=== PATIENT | female | born 1990 | race Two or more races ===

== ENCOUNTER 2022-04-25 11:39 | Observation (INO) | payer OTHER ==
[~2022-04-25] VITALS: Ht 162.6 cm; Wt 97.5 kg
[2022-04-25 13:22] LABS: Basophils # (auto) 0 10 ^3/uL (0-0.2); Basophils % (auto) 0.4 % (0.0-2.0); Eosinophils # (auto) 0 10 ^3/uL (0-0.8); Eosinophils % (auto) 0.5 % (0.0-7.0); Hematocrit 34.7 % (36.0-46.0); Hemoglobin 11.8 g/dL (12.2-16.2); Lymphocytes # (auto) 1.7 10 ^3/uL (0.4-5.4); Lymphocytes % (auto) 20.7 % (10.0-50.0); Mean Corpuscular Hemoglobin 28.3 pg (28.0-32.0); Mean Corpuscular Volume 83.2 fL (80.0-100.0); Monocytes # (auto) 0.4 10 ^3/uL (0-1.3); Monocytes % (auto) 4.9 % (0.0-12.0); Neutrophils # (auto) 6.1 10 ^3/uL (1.6-8.6); Neutrophils % (auto) 73.5 % (37.0-80.0); Red Blood Cells 4.17 10^6/uL (4.0-5.20); Red Cell Distribution Width 13.8 % (11.8-14.3); White Blood Cell 8.3 10^3/uL (4.4-10.8)
[2022-04-25 13:40] LABS: Albumin 2.8 g/dL (3.4-5.0); Calcium 8.9 mg/dL (8.5-10.1)
[2022-04-25 13:43] LABS: BUN/Creatinine Ratio 9.7
[2022-04-25 13:47] LABS: INR 1.02 (0.9-1.15); Partial Thromboplastin Time 28.6 sec (23.6-33.0)
[2022-04-25 13:54] LABS: Bilirubin, Total 0.4 mg/dL (0.2-1.0); Total Protein 7.3 g/dL (6.4-8.2)
[2022-04-25] MEDS: TERBUTALINE SULFATE 1 MG/ML 1ML VIAL SC SCH ×2 (14:40→15:27)
[2022-04-25] MEDS ORDERED: PREN1TAB71 OR (14:56)
[2022-04-26 07:07] LABS: RPR Non Reactive (Non Reactive)
== END 2022-04-25 16:11 | disposition home or self-care (01) ==
LOC: LDRP 11:39 → UNDODISOB 16:11
PROVIDERS: ADMIT Obstetrics & Gynecology; ATTEND Obstetrics & Gynecology
DX: O60.03 Preterm labor without delivery, third trimester (principal); O99.891 Other specified diseases and conditions complicating pregnancy; M54.9 Dorsalgia, unspecified; R10.9 Unspecified abdominal pain; Z3A.29 29 weeks gestation of pregnancy; Z79.899 Other long term (current) drug therapy
CPT/HCPCS: 36415; 59025; 76805; 80053; 81002; 82948; 85025; 85610; 85730; 86592; 86762; 86850; 86900; 86901; 87340; 96372; G0378; J3105

== ENCOUNTER 2022-05-16 13:30 | Observation (INO) | payer MEDICAID | END 2022-05-16 15:22 | disposition home or self-care (01) | LOC: LDRP 13:30 → UNDOADMOB 13:30 → LDRP 14:32 | PROVIDERS: ADMIT Obstetrics & Gynecology; ATTEND Obstetrics & Gynecology | DX: O26.893 Other specified pregnancy related conditions, third trimester (principal); R10.9 Unspecified abdominal pain; Z3A.32 32 weeks gestation of pregnancy | CPT/HCPCS: 59025; 81002; 94760; G0378 ==

== ENCOUNTER → 2022-05-16 | Outpatient (CLI) | payer MEDICAID ==
[~2022-05-16] MED LIST: PREN1TAB71 OR
[2022-05-16 10:56] LABS: Basophils # (auto) 0 10 ^3/uL (0-0.2); Basophils % (auto) 0.6 % (0.0-2.0); Eosinophils # (auto) 0 10 ^3/uL (0-0.8); Eosinophils % (auto) 0.7 % (0.0-7.0); Hemoglobin 11.4 g/dL (12.2-16.2); Lymphocytes # (auto) 1.7 10 ^3/uL (0.4-5.4); Mean Corpuscular Hemoglobin 27.2 pg (28.0-32.0); Mean Corpuscular Hgb Conc. 33.6 g/dL (32.0-36.0); Mean Corpuscular Volume 80.9 fL (80.0-100.0); Monocytes # (auto) 0.3 10 ^3/uL (0-1.3); Monocytes % (auto) 4.9 % (0.0-12.0); Neutrophils # (auto) 4.8 10 ^3/uL (1.6-8.6); Neutrophils % (auto) 69.8 % (37.0-80.0); Nucleated Red Blood Cells % 0.1 %; Red Blood Cells 4.21 10^6/uL (4.0-5.20); Red Cell Distribution Width 13.8 % (11.8-14.3); White Blood Cell 6.9 10^3/uL (4.4-10.8)
[2022-05-16 11:26] LABS: Amphetamine Screen, Urine NEGATIVE (NEGATIVE); Barbiturate Scree,Urine NEGATIVE (NEGATIVE); Benzodiazephine Screen, Urine NEGATIVE (NEGATIVE); Cannabinoid Screen, Urine NEGATIVE (NEGATIVE); Cocaine Screen, Urine NEGATIVE (NEGATIVE); Opiate Scree,Urine NEGATIVE (NEGATIVE); Phencyclidine Screen, Urine NEGATIVE (NEGATIVE)
[2022-05-17 06:25] LABS: RPR Non Reactive (Non Reactive)
== END | disposition home or self-care (01) ==
LOC: LAB 10:09
PROVIDERS: ATTEND Obstetrics & Gynecology
DX: Z34.80 Encounter for supervision of other normal pregnancy, unspecified trimester (principal); Z31.430 Encounter of female for testing for genetic disease carrier status for procreative management; Z36.0 Encounter for antenatal screening for chromosomal anomalies; N39.0 Urinary tract infection, site not specified
CPT/HCPCS: 36415; 80307; 83021; 83036; 84112; 84144; 84702; 85025; 85660; 86592; 86703; 86762; 86850; 86900; 86901; 87086; 87340

== ENCOUNTER → 2022-05-23 | Outpatient (CLI) | payer MEDICAID | END | disposition home or self-care (01) | LOC: LAB 09:35 | PROVIDERS: ATTEND Obstetrics & Gynecology Obstetrics | DX: Z34.80 Encounter for supervision of other normal pregnancy, unspecified trimester (principal) | CPT/HCPCS: 36415; 82951 ==

== ENCOUNTER 2022-06-05 13:50 | Observation (INO) | payer MEDICAID ==
[~2022-06-05] VITALS: Ht 162.6 cm; Wt 98.0 kg
== END 2022-06-05 15:30 | disposition home or self-care (01) ==
LOC: LDRP 13:50 → UNDOADMOB 13:50 → LDRP 14:08 → UNDODISOB 15:30
PROVIDERS: ADMIT Obstetrics & Gynecology; ATTEND Obstetrics & Gynecology
DX: O24.419 Gestational diabetes mellitus in pregnancy, unspecified control (principal); Z3A.35 35 weeks gestation of pregnancy
CPT/HCPCS: 59025; 76818; 81002; 82948; 82962; 94760; G0378

== ENCOUNTER → 2022-06-05 | Outpatient (CLI) | payer MEDICAID ==
[2022-06-05 11:01] LABS: Basophils # (auto) 0 10 ^3/uL (0-0.2); Basophils % (auto) 0.4 % (0.0-2.0); Eosinophils # (auto) 0 10 ^3/uL (0-0.8); Eosinophils % (auto) 0.7 % (0.0-7.0); Hemoglobin 10.9 g/dL (12.2-16.2); Lymphocytes # (auto) 1.7 10 ^3/uL (0.4-5.4); Mean Corpuscular Hemoglobin 25.6 pg (28.0-32.0); Monocytes # (auto) 0.4 10 ^3/uL (0-1.3); Neutrophils # (auto) 4.1 10 ^3/uL (1.6-8.6); Red Blood Cells 4.25 10^6/uL (4.0-5.20); White Blood Cell 6.3 10^3/uL (4.4-10.8)
[2022-06-05 11:03] LABS: Hematocrit 33.7 % (36.0-46.0); Lymphocytes % (auto) 27.2 % (10.0-50.0); Mean Corpuscular Hgb Conc. 32.2 g/dL (32.0-36.0); Mean Corpuscular Volume 79.4 fL (80.0-100.0); Monocytes % (auto) 6.9 % (0.0-12.0); Neutrophils % (auto) 64.8 % (37.0-80.0); Red Cell Distribution Width 13.6 % (11.8-14.3)
[2022-06-06 08:07] LABS: RPR Non Reactive (Non Reactive)
== END | disposition home or self-care (01) ==
LOC: LAB 10:32
PROVIDERS: ATTEND Obstetrics & Gynecology Obstetrics
DX: Z34.80 Encounter for supervision of other normal pregnancy, unspecified trimester (principal); O99.810 Abnormal glucose complicating pregnancy
CPT/HCPCS: 36415; 82951; 85025; 86592

== ENCOUNTER 2022-06-11 09:20 | Observation (INO) | payer MEDICAID | END 2022-06-11 11:10 | disposition home or self-care (01) | LOC: LDRP 09:20 → UNDOADMOB 09:20 → LDRP 09:49 → UNDODISOB 11:10 | PROVIDERS: ADMIT Obstetrics & Gynecology Obstetrics; ATTEND Obstetrics & Gynecology Obstetrics | DX: O24.419 Gestational diabetes mellitus in pregnancy, unspecified control (principal); Z3A.36 36 weeks gestation of pregnancy | CPT/HCPCS: 59025; 76818; 81002; 82962; G0378 ==

== ENCOUNTER 2022-06-15 03:34 | Observation (INO) | payer MEDICAID ==
[~2022-06-15] VITALS: Ht 162.6 cm; Wt 98.0 kg
== END 2022-06-15 05:00 | disposition home or self-care (01) ==
LOC: LDRP 03:34
PROVIDERS: ADMIT Obstetrics & Gynecology; ATTEND Obstetrics & Gynecology
DX: O62.9 Abnormality of forces of labor, unspecified (principal); Z3A.37 37 weeks gestation of pregnancy
CPT/HCPCS: 59025; 81002

== ENCOUNTER 2022-06-15 15:27 | Observation (INO) | payer MEDICAID ==
[~2022-06-15] VITALS: Ht 30.5 cm; Wt 0.5 kg
[2022-06-15] MEDS ORDERED: ACETAMINOPHEN 325 MG TAB PO ONE (19:15)
[2022-06-15] MEDS ORDERED: SODIUM CHLORIDE 0.9% 1,000 ML IV ONE (19:15)
[2022-06-15] MEDS ORDERED: ONDANSETRON HCL 4 MG/2 ML VIAL IV PRN (20:00)
[2022-06-15 21:09] LABS: Basophils # (auto) 0 10 ^3/uL (0-0.2); Basophils % (auto) 0.6 % (0.0-2.0); Eosinophils # (auto) 0 10 ^3/uL (0-0.8); Hematocrit 28.3 % (36.0-46.0); Lymphocytes # (auto) 0.4 10 ^3/uL (0.4-5.4); Lymphocytes % (auto) 5.4 % (10.0-50.0); Mean Corpuscular Hemoglobin 24.9 pg (28.0-32.0); Mean Corpuscular Hgb Conc. 31.9 g/dL (32.0-36.0); Mean Corpuscular Volume 78.1 fL (80.0-100.0); Monocytes # (auto) 0.8 10 ^3/uL (0-1.3); Monocytes % (auto) 11.4 % (0.0-12.0); Neutrophils # (auto) 5.7 10 ^3/uL (1.6-8.6); Neutrophils % (auto) 82.6 % (37.0-80.0); Nucleated Red Blood Cells % 0.1 %; Red Blood Cells 3.63 10^6/uL (4.0-5.20); Red Cell Distribution Width 14.5 % (11.8-14.3); White Blood Cell 6.9 10^3/uL (4.4-10.8)
[2022-06-15 22:47] LABS: Amphetamine Screen, Urine NEGATIVE (NEGATIVE); Barbiturate Scree,Urine NEGATIVE (NEGATIVE); Benzodiazephine Screen, Urine NEGATIVE (NEGATIVE); Cannabinoid Screen, Urine NEGATIVE (NEGATIVE); Cocaine Screen, Urine NEGATIVE (NEGATIVE); Opiate Scree,Urine NEGATIVE (NEGATIVE); Phencyclidine Screen, Urine NEGATIVE (NEGATIVE)
[2022-06-17 06:06] LABS: RPR Non Reactive (Non Reactive)
== END 2022-06-15 23:50 | disposition home or self-care (01) ==
LOC: UNDOADMOB 15:27 → LDRP 15:27
PROVIDERS: ADMIT Obstetrics & Gynecology; ATTEND Obstetrics & Gynecology
DX: O98.513 Other viral diseases complicating pregnancy, third trimester (principal); U07.1 COVID-19; O62.9 Abnormality of forces of labor, unspecified; O36.8130 Decreased fetal movements, third trimester, not applicable or unspecified; O26.893 Other specified pregnancy related conditions, third trimester; R51.9 Headache, unspecified; R50.9 Fever, unspecified; R09.81 Nasal congestion; Z79.899 Other long term (current) drug therapy; Z3A.37 37 weeks gestation of pregnancy
CPT/HCPCS: 36415; 59025; 76818; 80307; 81002; 83036; 85025; 86592; 87426; 94762; 96361; 96374; G0378; J2405; 96360

== ENCOUNTER 2022-06-29 10:30 | Inpatient (IN) | payer MEDICAID ==
[~2022-06-29] VITALS: Ht 162.6 cm; Wt 98.0 kg
[2022-06-29] MEDS ORDERED: PROMETHAZINE HCL 25 MG/ML 1ML IV PRN (11:00)
[2022-06-29] MEDS ORDERED: DERMOPLAST 60ML BOTTLE TOP PRN (11:00)
[2022-06-29] MEDS ORDERED: miSOPROStol 50 MCG per PRE-CUT 1/2 TAB PO PRN (11:00)
[2022-06-29] MEDS ORDERED: LIDOCAINE 2%HCL (LOCAL ANESTH.) INJ 10ml MDV IJ PRN (11:00)
[2022-06-29] MEDS ORDERED: BUTORPHANOL TARTRATE 2 MG/1 ML VIAL IV PRN ×2 (11:00)
[2022-06-29] MEDS ORDERED: PHISODERM TOP SOLN 240ML BTL TOP PRN (11:00)
[2022-06-29] MEDS ORDERED: WITCH HAZEL-GLYCERIN PAD TOP PRN (11:00)
[2022-06-29 11:40] LABS: Basophils # (auto) 0 10 ^3/uL (0-0.2); Eosinophils # (auto) 0 10 ^3/uL (0-0.8); Hemoglobin 10.2 g/dL (12.2-16.2); Lymphocytes # (auto) 1.6 10 ^3/uL (0.4-5.4); Monocytes # (auto) 0.6 10 ^3/uL (0-1.3); Neutrophils # (auto) 4.7 10 ^3/uL (1.6-8.6); Nucleated Red Blood Cells % 0.1 %; Red Blood Cells 4.14 10^6/uL (4.0-5.20); White Blood Cell 6.9 10^3/uL (4.4-10.8)
[2022-06-29 11:43] LABS: Basophils % (auto) 0.3 % (0.0-2.0); Eosinophils % (auto) 0.1 % (0.0-7.0); Hematocrit 32.1 % (36.0-46.0); Lymphocytes % (auto) 23.2 % (10.0-50.0); Mean Corpuscular Hemoglobin 24.7 pg (28.0-32.0); Mean Corpuscular Hgb Conc. 31.8 g/dL (32.0-36.0); Mean Corpuscular Volume 77.5 fL (80.0-100.0); Monocytes % (auto) 8.7 % (0.0-12.0); Neutrophils % (auto) 67.7 % (37.0-80.0); Red Cell Distribution Width 14.9 % (11.8-14.3)
[2022-06-29 11:49] LABS: Urine Bacteria FEW /hpf (None Seen); Urine Blood Negative /uL (Negative); Urine Mucus FEW (None Seen); Urine Specific Gravity 1.022 (1.001-1.035); Urine WBC 22 /hpf (0 - 5)
[2022-06-29 12:00] LABS: Albumin 2.5 g/dL (3.4-5.0); Calcium 8.7 mg/dL (8.5-10.1); Potassium 4.1 mmol/L (3.5-5.1)
[2022-06-29 12:02] LABS: Amphetamine Screen, Urine NEGATIVE (NEGATIVE); Barbiturate Scree,Urine NEGATIVE (NEGATIVE); Benzodiazephine Screen, Urine NEGATIVE (NEGATIVE); Cannabinoid Screen, Urine NEGATIVE (NEGATIVE); Cocaine Screen, Urine NEGATIVE (NEGATIVE); Opiate Scree,Urine NEGATIVE (NEGATIVE); Phencyclidine Screen, Urine NEGATIVE (NEGATIVE)
[2022-06-29 12:03] LABS: BUN/Creatinine Ratio 8.8; Bilirubin, Total 0.6 mg/dL (0.2-1.0); Total Protein 6.8 g/dL (6.4-8.2)
[2022-06-29 12:08] LABS: INR 0.94 (0.9-1.15); Partial Thromboplastin Time 27.4 sec (24.6-33.4)
[2022-06-29] MEDS: LACTATED RINGER'S 1,000 ML IV SCH ×3 (14:47→17:48)
[2022-06-29] MEDS ORDERED: ROPIVACAINE HCL 200 ML EPI SCH (16:30)
[2022-06-29] MEDS ORDERED: ePHEDrine SULFATE 50 MG/ML AMP IV ONE (16:30)
[2022-06-29] MEDS ORDERED: NALOXONE HCL 0.4 MG/ML VIAL IV ONE (16:30)
[2022-06-29] MEDS ORDERED: fentaNYL CITRATE 100 MCG/2 ML VL IV ONE (16:30)
[2022-06-29] MEDS ORDERED: LIDOCAINE HCL 2 %PF INJ 10ML AMP IJ ONE ×2 (16:59→17:00)
[2022-06-29] MEDS ORDERED: OXYTOCIN 20 UNT in SODIUM CHLORIDE 0.9% 1,000 ML IV ONE (18:30)
[2022-06-29] MEDS ORDERED: LACT. RINGERS/OXYTOCIN 20UNITS 500 ML IV ONE ×2 (18:30→19:00)
[2022-06-29] MEDS ORDERED: TERBUTALINE SULFATE 1 MG/ML 1ML VIAL SC PRN (18:30)
[2022-06-29] MEDS ORDERED: NS/OXYTOCIN 20UNITS 1,000 ML IV ONE (22:04)
[2022-06-30] MEDS ORDERED: OXYTOCIN IV ONE (00:31)
[2022-06-30] MEDS ORDERED: NS IV ONE (00:31)
[2022-06-30] MEDS ORDERED: ONDANSETRON ODT 4 MG TAB PO PRN (01:45)
[2022-06-30] MEDS ORDERED: ACETAMINOPHEN 325 MG TAB PO PRN (01:45)
[2022-06-30] MEDS: IBUPROFEN 800 MG TAB PO SCH ×3 (05:19→17:50)
[2022-06-30 06:06] LABS: RPR Non Reactive (Non Reactive)
[2022-06-30 07:00] VITALS: BP 107/58
[2022-06-30 08:06] LABS: Rubella Antibodies, IgG 9.25 index (Immune >0.99)
[2022-06-30] MEDS: WITCH HAZEL-GLYCERIN PAD TOP PRN ×2 (09:01→23:48)
[2022-06-30] MEDS: PHISODERM TOP SOLN 240ML BTL TOP PRN ×2 (09:01→23:48)
[2022-06-30] MEDS: DERMOPLAST 60ML BOTTLE TOP PRN ×2 (09:01→23:48)
[2022-06-30 11:00] VITALS: BP 109/58
[2022-06-30 15:00] VITALS: BP 105/50
[2022-06-30 19:30] VITALS: BP 103/59
[2022-06-30] MEDS ORDERED: DOCUSATE SOD 100 MG CAP PO SCH (22:00)
[2022-06-30 23:00] VITALS: BP 109/51
[2022-07-01] MEDS: IBUPROFEN 800 MG TAB PO SCH ×2 (01:48→11:37)
[2022-07-01 03:00] VITALS: BP 113/55
[2022-07-01] MEDS ORDERED: IBUP800T26 PO (07:02)
[2022-07-01] MEDS ORDERED: DOCU100C10 PO (07:02)
[2022-07-01 07:14] VITALS: BP 122/61
[2022-07-01 11:20] VITALS: BP 119/59
[2022-07-01 15:00] VITALS: BP 117/58
== END 2022-07-01 17:38 | disposition home or self-care (01) | DRG 560 ==
LOC: LDRP 10:30
PROVIDERS: ADMIT Obstetrics & Gynecology; ATTEND Obstetrics & Gynecology
PROC: 10E0XZZ Delivery of Products of Conception, External Approach (ICD-10-PCS; principal; 2022-06-30)
PROC: 3E0R3BZ Introduction of Anesthetic Agent into Spinal Canal, Percutaneous Approach (ICD-10-PCS; 2022-06-30)
PROC: 00HU33Z Insertion of Infusion Device into Spinal Canal, Percutaneous Approach (ICD-10-PCS; 2022-06-30)
DX: O69.81X0 Labor and delivery complicated by cord around neck, without compression, not applicable or unspecified (principal); Z37.0 Single live birth; O36.63X0 Maternal care for excessive fetal growth, third trimester, not applicable or unspecified; Z20.822 Contact with and (suspected) exposure to COVID-19; Z3A.39 39 weeks gestation of pregnancy
CPT/HCPCS: 36415; 59025; 59409; 62282; 80053; 80307; 81001; 81002; 85025; 85610; 85730; 86592; 86762; 86850; 86900; 86901; 87340; 94760; 94762; 96360; 96361; 96365; 96366; G0378; J2001

== ENCOUNTER 2023-01-04 11:34 | Emergency (ER) | payer MEDICAID ==
[~2023-01-04] VITALS: Ht 162.6 cm; Wt 101.4 kg
[~2023-01-04 11:34] MED LIST changes: +DOCU100C10 PO; +IBUP800T26 PO
[2023-01-04] MEDS ORDERED: LIDO2SOL23 PO (13:07)
[2023-01-04] MEDS ORDERED: AZIT500T66 PO (13:07)
[2023-01-04 13:09] VITALS: BP 119/59
== END 2023-01-04 13:22 | disposition home or self-care (01) ==
LOC: ER 11:34
DX: J03.90 Acute tonsillitis, unspecified (principal); Z79.2 Long term (current) use of antibiotics; Z79.1 Long term (current) use of non-steroidal anti-inflammatories (NSAID); Z79.899 Other long term (current) drug therapy

== ENCOUNTER 2024-12-27 13:07 | Emergency (ER) | payer MEDICAID ==
[~2024-12-27] VITALS: Ht 162.6 cm; Wt 108.0 kg
[~2024-12-27 13:07] MED LIST changes: +AZIT500T66 PO; +DOCU-265 PO; -DOCU100C10 PO; +IBUP-1455 PO; -IBUP800T26 PO; +LIDO2SOL26 PO
[2024-12-27 15:04] LABS: Basophils # (auto) 0 10 ^3/uL (0-0.2); Basophils % (auto) 0.5 % (0.0-2.0); Eosinophils # (auto) 0.1 10 ^3/uL (0-0.8); Hematocrit 38.1 % (36.0-46.0); Hemoglobin 12.7 g/dL (12.2-16.2); Lymphocytes # (auto) 1.8 10 ^3/uL (0.4-5.4); Lymphocytes % (auto) 29.1 % (10.0-50.0); Mean Corpuscular Hemoglobin 27.1 pg (28.0-32.0); Mean Corpuscular Hgb Conc. 33.4 g/dL (32.0-36.0); Mean Corpuscular Volume 81.2 fL (80.0-100.0); Monocytes # (auto) 0.4 10 ^3/uL (0-1.3); Monocytes % (auto) 6.3 % (0.0-12.0); Neutrophils # (auto) 3.8 10 ^3/uL (1.6-8.6); Neutrophils % (auto) 62.1 % (37.0-80.0); Platelet Count (auto) 316 10^3/uL (140-450); Red Blood Cells 4.69 10^6/uL (4.0-5.20); Red Cell Distribution Width 15.3 % (11.8-14.3); White Blood Cell 6.2 10^3/uL (4.4-10.8)
[2024-12-27 15:09] LABS: Chloride 105 mmol/L (98-107); Potassium 4.4 mmol/L (3.5-5.1); Sodium 136 mmol/L (136-145)
[2024-12-27 15:10] LABS: Anion Gap 6 (5-15); Carbon Dioxide 25 mmol/L (20-31)
[2024-12-27 15:11] LABS: Calcium 10.2 mg/dL (8.7-10.4)
[2024-12-27 15:15] LABS: BUN/Creatinine Ratio 8.8 (10.0-20.0); Glucose 82 mg/dL (74-106)
[2024-12-27 15:29] LABS: Blood Urea Nitrogen 7 mg/dL (9-23)
[2024-12-27 15:55] LABS: Urine Bacteria FEW /hpf (None Seen); Urine Blood 2+ /uL (Negative); Urine Clarity Turbid (Clear); Urine Color Light-Yellow (Yellow); Urine Mucus FEW (None Seen); Urine Protein, UAD TRACE (Negative); Urine Specific Gravity 1.022 (1.001-1.035); Urine Squamous Epithelial Cell MOD /hpf (<5); Urine Urobilinogen Normal (Negative); Urine WBC 24 /HPF (0-5)
--- NOTE | 2024-12-27 16:20 | ED.PDOC ---
INVESTMENTS MANAGER HPI Comments 34 y.o female presents to the ED for a chief complaint of vaginal bleeding associated with pelvic cramping that presented this morning around 1000. Patient is 6 weeks gestation with desired , has a DIRECTOR WHOLESALE history of with 2 miscarriages and is on prenatals. Patient noticed one episode of bleeding when using the restroom in the toilet and when wiping. At this time, patient has gone to the restroom again and denied any bleeding. Patient denies any blood clots, nausea, vomiting, back pain, fever, chills,hematuria, dysuria or recent falls. Patient was seen by Analyst Sales 3-4 days ago, was told baby had low heart tones and was not given a due date but was advised to go the ED if she experienced any bleeding or cramping. Chief Complaint: Vaginal Bleed Time Seen by MD: 15:40 Reviewed Notes: Nurses Notes, Medications, Allergies Allergies: Coded Allergies: NO KNOWN ALLERGIES (Unverified , 06/29/22) Home Meds Active Scripts Lidocaine HCl (Mouth-Throat) (Lidocaine HCl Viscous) 2 % Kelli, 5 ML PO TID, #100 ML Prov:JENNY SUAZO 01/04/23 Azithromycin (Azithromycin) 500 Mg Tab, 1 TAB PO DAILY, #5 TAB Prov:JENNY SUAZO 01/04/23 Ibuprofen Micronized (Ibuprofen) 800 Mg Tab, 800 MG PO Q6HR PRN, #20 TAB Prov:RADHA SORIANO DO 07/01/22 Docusate Sodium (Docusate Sodium) 100 Mg Cap, 100 MG PO HS PRN, #30 CAP Prov:RADHA SORIANO DO 07/01/22 Reported Medications Vit W/ Ferrous Fumara (PNV PLUS MULTIVI) Plus Tab, 1 OR, TAB 04/25/22 Information Source: Patient Mode of Arrival: Ambulatory Timing: Hours Severity: Mild Vaginal Discharge: None Vaginal Lesions: None Bleeding Quality: Bright Red Vaginal Mass: None Onset Of Mass/Bleeding: Spontaneous Sexual Activity: Last Consensual [place]: Unknown Control: None History of: Current Associated Signs and Symptoms: Vaginal Bleeding, Abdominal Pain, Cramping Past Medical History PAST MEDICAL HISTORY: Denies Surgical History: Denies all surgeries DIRECTOR WHOLESALE History: Denies all DIRECTOR WHOLESALE Hx 6 Para 3 AB 2 Family History Family History: Reviewed,noncontributory to illness Social History Smoker: Non-Smoker Alcohol: Denies ETOH Use Drugs: Denies Drug Use Lives In: Home Constitutional: denies: chills, diaphoresis, fatigue, fever, malaise, sweats, weakness, others EENTM: denies: blurred vision, double vision, ear bleeding, ear discharge, ear drainage, ear pain, ear ringing, eye pain, eye redness, hearing loss, mouth pain, mouth swelling, nasal discharge, nose bleeding, nose congestion, nose pain, photophobia, tearing, throat pain, throat swelling, voice changes, others Respiratory: denies: cough, hemoptysis, orthopnea, SOB at rest, shortness of breath, SOB with excertion, stridor, wheezing, others Cardiovascular: denies: chest pain, dizzy spells, diaphoresis, Dyspnea on exe rtion, edema, irregular heart beat, left arm pain, lightheadedness, palpitations, PND, syncope, others Gastrointestinal: reports: abdominal pain; denies: abdomen distended, blood streaked bowels, constipated, diarrhea, dysphagia, difficulty swallowing, hematemesis, melena, nausea, poor appetite, poor fluid intake, rectal bleeding, rectal pain, vomiting, others Genitourinary: reports: abnormal vagina bleeding, pain, ; denies: burning, dyspareunia, dysuria, flank pain, frequency, hematuria, incontinence, vagina discharge, urgency, others Neurological: denies: dizziness, fainting, headache, left sided numbness, left sided weakness, numbness, paresthesia, pre-existing deficit, right sided numbness, right sided weakness, seizure, speech problems, tingling, tremors, weakness, others Musculoskeletal: denies: back pain, gout, joint pain, joint swelling, muscle pain, muscle stiffness, neck pain, others Integumetry: denies: bruises, change in color, change in hair/nails, dryness, laceration, lesions, lumps, rash, wounds, others Allergic/Immunocompromised: denies: Difficulty Healing, Frequent Infections, Hives, Itching, others Hematologic/Lymphatic: denies: anemia, blood clots, easy bleeding, easy bruising, swollen glands, others Endocrine: denies: excessive hunger, excessive sweating, excessive thirst, excessive urination, flushing, intolerance to cold, intolerance to heat, unexplained weight gain, unexplained weight loss, others Psychiatric: denies: anxiety, bipolar disorder, depression, hopeless, panic disorder, schizophrenia, sleepless, suicidal, others All Other Systems: Reviewed and Negative Physical Exam General Appearance: No Apparent Distress, Normal HEENT: Normal ENT Inspection, Pharynx Normal, TMs Normal Neck: Full Range of Motion, Non-Tender, Normal, Normal Inspection Respiratory: Chest Non-Tender, Lungs Clear, No Accessory Muscle Use, No Respiratory Distress, Normal Breath Sounds Cardiovascular: No Edema, No JVD, No Murmur, No Gallop, Normal Peripheral Pulses, Regular Rate/Rhythm Breast Exam: Deferred Gastrointestinal: No Organomegaly, Non Tender, No Pulsatile Mass, Normal Bowel Sounds, Soft Genitalia: Deferred Pelvic: Deferred Rectal: Deferred Extremities: No calf tenderness, Normal capillary refill, Normal inspection, Normal range of motion, Non-tender, No pedal edema Musculoskeletal : Apperance: Normal Neurologic: Alert, business strategist II-XII nml as Tested, No Motor Deficits, Normal Affect, Normal Mood, No Sensory Deficits Cerebellar Function: Normal Reflexes: Normal Skin: Dry, Normal Color, Warm Lymphatic: No Adenopathy Was a procedure done? Was a procedure done?: No Differential Diagnosis (DIRECTOR WHOLESALE) Vaginal Bleeding: - Complete, - Incomplete, - Inevitable, - Missed, - Threatened, Blood Loss Anemia X-Ray, Labs, Meds, VS Vital Signs Date Time Temp Pulse Resp B/P (MAP) Pulse Ox O2 Delivery O2 Flow Rate FiO2 12/27/24 13:22 98.0 73 17 143/63 (89) 96 Lab Test 12/27/24 14:34 12/27/24 13:39 Range/Units White Blood Count 6.2 4.4-10.8 10^3/uL Red Blood Count 4.69 4.0-5.20 10^6/uL Hemoglobin 12.7 12.2-16.2 g/dL Hematocrit 38.1 36.0-46.0 % Mean Corpuscular Volume 81.2 80.0-100.0 fL Mean Corpuscular Hemoglobin 27.1 L 28.0-32.0 pg Mean Corpuscular Hemoglobin Concent 33.4 32.0-36.0 g/dL Red Cell Distribution Width 15.3 H 11.8-14.3 % Platelet Count 316 140-450 10^3/uL Mean Platelet Volume 8.7 6.9-10.8 fL Neutrophils (%) (Auto) 62.1 37.0-80.0 % Lymphocytes (%) (Auto) 29.1 10.0-50.0 % Monocytes (%) (Auto) 6.3 0.0-12.0 % Eosinophils (%) (Auto) 2.0 0.0-7.0 % Basophils (%) (Auto) 0.5 0.0-2.0 % Neutrophils # (Auto) 3.8 1.6-8.6 10 ^3/uL Lymphocytes # (Auto) 1.8 0.4-5.4 10 ^3/uL Monocytes # (Auto) 0.4 0-1.3 10 ^3/uL Eosinophils # (Auto) 0.1 0-0.8 10 ^3/uL Basophils # (Auto) 0 0-0.2 10 ^3/uL Nucleated Red Blood Cells 0.0 % Sodium Level 136 136-145 mmol/L Potassium Level 4.4 3.5-5.1 mmol/L Chloride Level 105 98-107 mmol/L Carbon Dioxide Level 25 20-31 mmol/L Anion Gap 6 5-15 Blood Urea Nitrogen 7 L 9-23 mg/dL Creatinine 0.80 0.550-1.02 mg/dL Glomerular Filtration Rate Calc 99 >90 mL/min BUN/Creatinine Ratio 8.8 L 10.0-20.0 Serum Glucose 82 74-106 mg/dL Calcium Level 10.2 8.7-10.4 mg/dL Beta HCG, Quantitative 05202.3 H 1.5-4.2 mIU/mL Urine Color Light-yellow Yellow Urine Clarity Turbid H Clear Urine pH 6.0 5.0-9.0 Urine Specific [place] 1.022 1.001-1.035 Urine Protein Trace H Negative Urine Ketones Negative Negative Urine Blood 2+ H Negative /uL Urine Nitrite Negative Negative Urine Bilirubin Negative Negative Urine Urobilinogen Normal Negative mg/dL Urine Leukocyte Esterase 2+ Negative /uL Urine RBC 24 0 - 4 /hpf Urine Microscopic WBC 24 H 0-5 /HPF Urine Squamous Epithelial Cells Mod <5 /hpf Urine Bacteria Few H None Seen /hpf Urine Mucus Few None Seen Urine Glucose Normal Normal mg/dL X-Ray, Labs, Meds, VS Comment 34 yo female, approx 6 wk here w c/o vaginal bleeding. Follows with OBGYN here. Vital signs stable, afebrile. Physical exam as above without any acute findings. Pelvic exam deferred as per patient request. Labs notable for patient being Rh positive, not a RhoGAM candidate. UA positive for UTI, patient was prescribed Keflex to her preferred pharmacy. Ultrasound with evidence of viable IUP as per radiology report. Patient was informed of said findings. Patient was instructed to follow up with her OBGYN later this week for re- evaluation. Patient already taking vitamins. No other pain or symptoms. Doubt ectopic . Patient instructed to return to ER im mediately for worsening vaginal bleeding, passage of clots were tissue, dysuria, fevers, p.o. intolerance, any other concerning symptoms. Patient expressed understanding and was discharged home in stable condition ambulating with a steady gait in no distress. Time of 1ST Reevaluation: 16:13 Reevaluation 1ST: Unchanged Patient Education/Counseling: Diagnosis, Treatment, Prognosis Family Education/Counseling: No Family Present Departure 1 Departure Time of Disposition: 17:21 Impression: Primary Impression: Vaginal bleeding in Additional Impression: Threatened Disposition: 01 HOME / SELF CARE / HOMELESS Condition: Stable e-Prescriptions Cephalexin Monohydrate (Cephalexin) 500 Mg Cap 500 MG PO Q6HR for 5 Days, #20 MG Prov: TREMAINE URENA MD 12/27/24 Discharged With: Self Critical Care Note Critical Care Time?: No Stability Stability form required: No I personally scribed for TREMAINE URENA MD ([email or web address]) on 12/27/24 at 16:20. Electronically submitted by Jaqui Carmona ([facility]). TREMAINE URENA MD Dec 27, 2024 16:20
--- NOTE | 2024-12-27 16:54 | DVH ---
OB ULTRASOUND <14 WEEKS: HISTORY: vaginal bleeding, approx 6 wk preg TECHNIQUE: Multiple real-time grayscale sonographic images of the pelvis with duplex Doppler color f low, spectral and M-mode analysis. TRANSDUCERS: Transabdominal and transvaginal COMPARISON: OB ULTRASOUND COMP GTR 14 WKS on DOS: 04/25/22 FINDINGS: The uterus measures 9.3 x 5.9 x 5.3 cm The cervix is not visualized Right ovary not visualized. Left ovary measures 4.1 x 3.7 x 4.1 cm with normal Doppler color flow. Probable left corpus luteal cy st measures 2.7 cm. IUP single fetus at 6 weeks and 0 days average ultrasound age based on mean crown-rump length of 0.4 cm and gestational sac size of 1.6 cm heart rate detected at 103 beats per minute. Yolk sac is present. Amniotic fluid is subjectively within normal limits Katelynn-gestational space: Small subchorionic hematoma is present measuring 2.2 x 1.3 cm. IMPRESSION: IUP single live fetus 6 weeks and 0 days AUA corresponding to an HARINI of 08/22/2025. Small subchorionic hematoma is present. Close clinical and sonographic follow-up advised.
[2024-12-27] MEDS ORDERED: CEPH500C PO (17:22)
[2024-12-27 17:35] VITALS: BP 144/63; PULSE 64; RESP 14; TEMP 98.7; O2SAT 99
== END 2024-12-27 17:39 | disposition home or self-care (01) ==
LOC: ER 13:09
DX: O20.0 Threatened abortion (principal); O20.8 Other hemorrhage in early pregnancy; Z3A.01 Less than 8 weeks gestation of pregnancy
CPT/HCPCS: 36415; 76801; 76817; 80048; 81001; 84702; 85025; 86850; 86900; 86901; 87086

== ENCOUNTER → 2024-12-31 | Outpatient (CLI) | payer MEDICAID ==
[~2024-12-31] MED LIST changes: +CEPH500C PO
[2024-12-31 15:03] LABS: Basophils # (auto) 0 10 ^3/uL (0-0.2); Basophils % (auto) 0.5 % (0.0-2.0); Eosinophils # (auto) 0 10 ^3/uL (0-0.8); Eosinophils % (auto) 0.8 % (0.0-7.0); Hematocrit 39.6 % (36.0-46.0); Hemoglobin 13.3 g/dL (12.2-16.2); Lymphocytes # (auto) 1.6 10 ^3/uL (0.4-5.4); Mean Corpuscular Hemoglobin 27.2 pg (28.0-32.0); Mean Corpuscular Hgb Conc. 33.6 g/dL (32.0-36.0); Mean Corpuscular Volume 80.9 fL (80.0-100.0); Monocytes # (auto) 0.3 10 ^3/uL (0-1.3); Monocytes % (auto) 5.4 % (0.0-12.0); Neutrophils # (auto) 4.2 10 ^3/uL (1.6-8.6); Neutrophils % (auto) 67.3 % (37.0-80.0); Nucleated Red Blood Cells % 0.1 %; Platelet Count (auto) 313 10^3/uL (140-450); Red Cell Distribution Width 15.6 % (11.8-14.3); White Blood Cell 6.2 10^3/uL (4.4-10.8)
[2024-12-31 15:33] LABS: Albumin 4.4 g/dL (3.2-4.8); Alkaline Phosphatase 90 U/L (46-116); Anion Gap 10 (5-15); Aspartate Aminotransferase 15 U/L (13-40); BUN/Creatinine Ratio 8.8 (10.0-20.0); Bilirubin, Total 0.5 mg/dL (0.2-1.0); Calcium 9.7 mg/dL (8.7-10.4); Carbon Dioxide 23 mmol/L (20-31); Chloride 102 mmol/L (98-107); Glucose 88 mg/dL (74-106); Potassium 3.8 mmol/L (3.5-5.1); Total Protein 7.5 g/dL (5.7-8.2)
[2024-12-31 15:34] LABS: Alanine Aminotransferase < 9 U/L (7-40); Blood Urea Nitrogen 7 mg/dL (9-23); Sodium 135 mmol/L (136-145)
[2024-12-31 15:38] LABS: Thyroid Stimulating Hormone 1.65 uIU/mL (0.55-4.78)
[2024-12-31 15:44] LABS: Beta HCG, Quantitative 45975.3 mIU/mL (1.5-4.2)
[2024-12-31 15:46] LABS: Amphetamine Screen, Urine Neg (NEGATIVE); Barbiturate Scree,Urine Neg (NEGATIVE); Benzodiazephine Screen, Urine Neg (NEGATIVE); Cannabinoid Screen, Urine Neg (NEGATIVE); Cocaine Screen, Urine Neg (NEGATIVE); Opiate Scree,Urine Neg (NEGATIVE); Phencyclidine Screen, Urine Neg (NEGATIVE)
[2025-01-01 15:06] LABS: Chlamydia Trachomatis, NAA Negative (Negative); Neisseria gonorrhoeae, NAA Negative (Negative)
== END | disposition home or self-care (01) ==
LOC: LAB 14:24
DX: Z34.91 Encounter for supervision of normal pregnancy, unspecified, first trimester (principal); Z36.0 Encounter for antenatal screening for chromosomal anomalies; Z31.430 Encounter of female for testing for genetic disease carrier status for procreative management; N39.0 Urinary tract infection, site not specified
CPT/HCPCS: 36415; 80053; 80307; 83036; 84439; 84443; 84702; 85025; 86592; 86703; 86762; 86787; 86850; 86900; 86901; 87086; 87340; 87902

== ENCOUNTER → 2025-03-11 | Outpatient (CLI) | payer MEDICAID ==
[~2025-03-11] MED LIST changes: -CEPH500C PO
== END | disposition home or self-care (01) ==
LOC: LAB 15:12
DX: Z34.00 Encounter for supervision of normal first pregnancy, unspecified trimester (principal); Z3A.00 Weeks of gestation of pregnancy not specified; Z79.899 Other long term (current) drug therapy
CPT/HCPCS: 87086

== ENCOUNTER 2025-05-09 14:45 | Observation (INO) | payer MEDICAID ==
--- NOTE | 2025-05-09 17:40 | DVHDS2 ---
Physician Discharge Progress N Final Diagnosis: Round ligament pain Headache Operations or Procedures: Operations or Procedures NST Commentary: Commentary No contractions BP's normal Not in labor Condition on Discharge: Stable Disposition: Home Discharge Instructions: Diet: Regular Activity: No Restrictions, As Tolerated Follow Up/Referral: As scheduled w/ Primary OB Medications: NA Follow Up Care: Discharge Statement: "Patient was advised to return to the ER or call 911 if any headaches, dizziness, shortness of breath, chest pain, abdominal pain, bleeding, fevers, or worsening of medical condition. Patient was counseled about treatment plan, medications, possible side effects, patientverbalized understanding. All questions were answered to the best of my ability. This discharge took greater then 30 minutes in planning, reviewing document ation, counseling the patient, and discussing with other team members." Visit Coding OBGYN Date of Service: May 09, 2025 Billing Provider: FREDY DALE DO DIAL SCREW ASSEMBLER Common Visit Codes: 61641-NQN/OBS SAME DATE (MOD) DIAL SCREW ASSEMBLER Procedure Codes: 97086-24- NON-STRESS TEST FREDY DALE DO May 09, 2025 17:40
== END 2025-05-09 15:38 | disposition home or self-care (01) ==
LOC: LDRP 14:45
PROVIDERS: ADMIT Obstetrics & Gynecology; ATTEND Obstetrics & Gynecology
DX: O26.893 Other specified pregnancy related conditions, third trimester (principal); R10.2 Pelvic and perineal pain; R51.9 Headache, unspecified; Z3A.25 25 weeks gestation of pregnancy; Z79.899 Other long term (current) drug therapy; Z98.890 Other specified postprocedural states
CPT/HCPCS: 81002; G0378; 59025

== ENCOUNTER 2025-06-10 22:30 | Observation (INO) | payer MEDICAID ==
--- NOTE | 2025-06-11 00:47 | DVH ---
LIMITED SURVEY CLINICAL HISTORY: PTL- cervical length COMPARISON: No recent prior studies available for comparison TECHNIQUE: Real-time grayscale, color flow and M-mode imaging of the gravid uterus was performed. FINDINGS: Single living intrauterine gestation. Cephalic presentation. heart rate 144 beats per minute. Placenta is posterior. No definite evidence of abruption or previa at this time. Amniotic fluid index 19.6 cm. The cervix measures approximately 2.8 cm in length and appears closed. IMPRESSION: Single living intrauterine gestation as above.
[2025-06-11] MEDS: LACTATED RINGER'S 1,000 ML IV ONE (00:49)
--- NOTE | 2025-06-11 02:12 | DVHDS2 ---
Physician Discharge Progress N Final Diagnosis: IUP at 30w3d r/o labor Operations or Procedures: Operations or Procedures S: Michelle Hernandez is a 34 year old at 30w3d presenting with complaints of uterine contractions. She states she had her appointment with [facility] today (06/10) and had a normal cervical length. O: Vitals- BP: 116/61, HR: 68 FHR- 135 baseline Variability moderate accelerations present decelerations absent contractions- irritability noted. A: IUP at 30w3d R/O labor category 1 tracing P: -Patient states that after IV hydration and cervical length US, she is feeling better and no longer in pain -RN discussed labor precautions with patient and when to come back to L&D for evaluation. -Patient OK to discharge home Co-managed with Dr. Lees Other Interventions Other Interventions LIMITED SURVEY CLINICAL HISTORY: PTL- cervical length COMPARISON: No recent prior studies available for comparison TECHNIQUE: Real-time grayscale, color flow and M-mode imaging of the gravid uterus was performed. FINDINGS: Single living intrauterine gestation. Cephalic presentation. heart rate 144 beats per minute. Placenta is posterior. No definite evidence of abruption or previa at this time. Amniotic fluid index 19.6 cm. The cervix measures approximately 2.8 cm in length and appears closed. IMPRESSION: Single living intrauterine gestation as above. Condition on Discharge: Good Disposition: Home Discharge Instructions: Diet: Regular Activity: No Restrictions, As Tolerated Follow Up/Referral: as previously scheduled Medications: see medication list. no change Follow Up Care: Discharge Statement: "Patient was advised to return to the ER or call 911 if any headaches, dizziness, shortness of breath, chest pain, abdominal pain, bleeding, fevers, or worsening of medical condition. Patient was counseled about treatment plan, medications, possible side effects, patientverbalized understanding. All questions were answered to the best of my ability. This discharge took greater then 30 minutes in planning, reviewing documentation, counseling the patient, and discussing with other team members." Visit Coding OBGYN Date of Service: Jun 11, 2025 Billing Provider: HAWA HA CNM APPLE THINNER Common Visit Codes: [id number] INP/OBS CARE(HIGH) APPLE THINNER Procedure Codes: 58166-43- NON-STRESS TEST HAWA HA CNM Jun 11, 2025 02:12
== END 2025-06-11 01:30 | disposition home or self-care (01) ==
LOC: LDRP 22:30
PROVIDERS: ADMIT Obstetrics & Gynecology; ATTEND Obstetrics & Gynecology
DX: O62.9 Abnormality of forces of labor, unspecified (principal); O99.891 Other specified diseases and conditions complicating pregnancy; M54.9 Dorsalgia, unspecified; O26.893 Other specified pregnancy related conditions, third trimester; R10.9 Unspecified abdominal pain; Z3A.30 30 weeks gestation of pregnancy; Z79.899 Other long term (current) drug therapy
CPT/HCPCS: 59025; 76815; 81002; 96360; 96361; G0378

== ENCOUNTER 2025-06-29 11:05 | Observation (INO) | payer MEDICAID ==
--- NOTE | 2025-06-29 13:15 | DVH ---
BIOPHYSICAL PROFILE HISTORY: Polyhydramnios TECHNIQUE: Multiple transabdominal real-time grayscale sonographic images through the gravid uterus o f the fetus with duplex doppler color flow and M-mode spectral analysis FINDINGS: BIOPHYSICAL PROFILE: breathing score: 2 movement score: 2 tone score: 2 Quantitative MANJINDER score: 2 (MANJINDER: 18.3 cm.) Total score: 8/8 The cervix 4.2 cm. Single live fetus in cephalic presentation. heart rate 136 beats per minute. Posterior placenta without previa or abruption Biophysical profile score 8/8 corresponding to an HARINI of 08/17/25 IMPRESSION: Biophysical profile score: 8/8
--- NOTE | 2025-06-29 16:11 | DVHDS2 ---
Physician Discharge Progress N Final Diagnosis: MANJINDER check Operations or Procedures: Operations or Procedures S: 34yo IUP@33.0wks. Pt was sent down from Dr. Lees's office for MANJINDER check since pt reports last MANJINDER at Dr. Mireles's [facility] office was 28cm and today in office was normal. +FM, denies UCs/LOF/VB. PNC with Dr. Lees, uncomplicated thus far. O: VSS NST reactive A: 34yo IUP@33.0wks Normal MANJINDER P: D/C home f/u with dr. lees as scheduled FKC/PTL precautions reviewed Dr. Lees consulted, agrees with POC. Other Interventions Other Interventions [place] [id number] Ph: [phone] DIAGNOSTIC IMAGING Diagnostic Imaging Report : [id number] Signed PATIENT: ELIF AGUILERA ACCT: [id number] UNIT: [id number] : 1990 LOC: [facility] ROOM / BED: [facility] / A AGE / SEX: 34 / F ADM STATUS: ADM IN SERVICE 1134 ORDERING PHYSICIAN: SONALI SEGURA CNM PROCEDURE(s): BPP - BIOPHYSICAL PROFILE REASON: Polyhydramnios ORDER NUMBER(s): [id number], ACCESSION NUMBER(s): [id number] BIOPHYSICAL PROFILE HISTORY: Polyhydramnios TECHNIQUE: Multiple transabdominal real-time grayscale sonographic images through the gravid uterus of the fetus with duplex doppler color flow and M-mode spectral analysis FINDINGS: BIOPHYSICAL PROFILE: breathing score: 2 movement score: 2 tone score: 2 Quantitative MANJINDER score: 2 (MANJINDER: 18.3 cm.) Total score: 8/8 The cervix 4.2 cm. Single live fetus in cephalic presentation. heart rate 136 beats per minute. Posterior placenta without previa or abruption Biophysical profile score 8/8 corresponding to an HARINI of 08/17/25 IMPRESSION: Biophysical profile score: 8/8 ATED BY: MODESTO ISIDRO MD DICTATED DATE/TIME: 06/29/25 1313 SIGNED BY: MODESTO ISIDRO MD SIGNED DATE/TIME: 06/29/25 1488 CC: Condition on Discharge: Stable Disposition: Home Discharge Instructions: Diet: Regular Activity: No Restrictions, As Tolerated Medications: see med list Follow Up Care: Specialist: f/u with dr. lees as scheduled Discharge Statement: "Patient was advised to return to the ER or call 911 if any headaches, dizziness, shortness of breath, chest pain, abdominal pain, bleeding, fevers, or worsening of medical condition. Patient was counseled about treatment plan, medications, possible side effects, patientverbalized understanding. All questions were answered to the best of my ability. This discharge took greater then 30 minutes in planning, reviewing documentation, counseling the patient, and discussing with other team members." Visit Coding OBGYN Date of Service: Jun 29, 2025 Billing Provider: SONALI SEGURA CNM MANUFACTURING ENGINEER Common Visit Codes: 53333-[id number] OBS CARE (HIGH) MANUFACTURING ENGINEER Procedure Codes: 35210-48- NON-STRESS TEST SONALI SEGURA CNM Jun 29, 2025 16:11
== END 2025-06-29 13:23 | disposition home or self-care (01) ==
LOC: LDRP 11:05 → UNDOADMOB 11:05 → LDRP 11:35
PROVIDERS: ADMIT Obstetrics & Gynecology; ATTEND Obstetrics & Gynecology
DX: O40.3XX0 Polyhydramnios, third trimester, not applicable or unspecified (principal); Z3A.33 33 weeks gestation of pregnancy; Z98.890 Other specified postprocedural states; Z79.899 Other long term (current) drug therapy
CPT/HCPCS: 59025; 76819; 94760; G0378

== ENCOUNTER 2025-07-30 00:33 | Observation (INO) | payer MEDICAID ==
--- NOTE | 2025-07-30 01:57 | DVHDS2 ---
Physician Discharge Progress N Final Diagnosis: at 37w3d Intact membranes Operations or Procedures: Operations or Procedures SUBJECTIVE Michelle Hernandez is a 34 year old at 37w3d presenting for leaking fluid Patient states that at 1500, she felt like her underwear was wet. Throughout the day, she felt more wet than usual when she wiped after using the bathroom. Denies any itching or malodor. States she is having occasional contractions, denies vaginal bleeding, and endorses positive movement. Expresses concern because she was told her baby is weighing 8 lbs, 2 oz and she might need a section. LMP: 11/10/24 EDC: 08/17/25 Review of Systems: Neuro: No complaints Heart: No complaints Lungs: No complaints GI: No complaints : Feels wet with clear fluid as described above Skin: No complaints Extremities: No complaints OBJECTIVE VSS FHR: Baseline: 140 Variability: Moderate Accelerations: Present Decelerations: Absent Category: 1 UCs: none noted Neuro: A&O x4. No apparent distress. Affect appropriate Heart: Regular rate and rhythm Lungs: Clear bilaterally GI: Gravid. No tenderness : SVE discussed and performed with consent by RN. Skin: Dry and intact. No rashes or lesions Extremities: Cap refill WNL. Amnisure: Negative Nitrazine: Negative ASSESSMENT 34 yo [id number] IUP at 37w3d Intact membranes Category 1 Tracing PLAN -Discussed estimated birthweight and suspected macrosomia. Reassured patient that delivery is considered if baby is estimating over 5000g. Encouraged patient to discuss potential IOL at 39 weeks with her provider. -Discussed labor precautions and kick counts. Answered all patient questions and concerns. Patient verbalizes understanding. -Continue with appointments as scheduled. Next appt on Saturday 08/04 Condition on Discharge: Good Disposition: Home Discharge Instructions: Diet: Regular Activity: No Restrictions, As Tolerated Medications: No change. See med list Follow Up Care: Specialist: follow-up with appointments as previously scheduled Discharge Statement: "Patient was advised to return to the ER or call 911 if any headaches, dizziness, shortness of breath, chest pain, abdominal pain, bleeding, fevers, or worsening of medical condition. Patient was counseled about treatment plan, medications, possible side effects, patientverbalized understanding. All questions were answered to the best of my ability. This discharge took greater then 30 minutes in planning, reviewing documentation, counseling the patient, and discussing with other team members." Visit Coding OBGYN Date of Service: Jul 30, 2025 Billing Provider: HAWA HA CNM AERONAUTICAL ENGINEERING PROFESSOR Common Visit Codes: [id number] INP/OBS CARE (HIGH) AERONAUTICAL ENGINEERING PROFESSOR Procedure Codes: 49979-29- NON-STRESS TEST HAWA HA CNM Jul 30, 2025 01:57
== END 2025-07-30 01:50 | disposition home or self-care (01) ==
LOC: LDRP 00:33
PROVIDERS: ADMIT Obstetrics & Gynecology; ATTEND Obstetrics & Gynecology
DX: O42.913 Preterm premature rupture of membranes, unspecified as to length of time between rupture and onset of labor, third trimester (principal); Z98.890 Other specified postprocedural states; Z3A.37 37 weeks gestation of pregnancy
CPT/HCPCS: 59025; 81002; 84112; 94760; G0378

== ENCOUNTER 2025-07-31 15:27 | Observation (INO) | payer MEDICAID ==
[2025-07-31 16:49] LABS: Fern Testing Negative
--- NOTE | 2025-08-02 17:37 | DVHDS2 ---
Discharge Summary Date of Admission Jul 31, 2025 at 15:27 Date of Discharge: Jul 31, 2025 Admitting Diagnosis 374 7th week intrauterine leaking fluid here for rule out from NST ultrasound all performed reassuring no evidence of ruptured membranes. Wounds: None Labs/Diagnostic Data: Laboratory Results Test 07/31/25 15:57 Amniotic Fluid Ferning Test Negative Placental [id number] Negative Brief Hx & Hospital Course: NST ultrasound quit Consults/Reason for consult None Operations or Procedures NST ultrasound Condition at Discharge: Good Final Diagnosis/Problems List IUP @ 37.4wks and stable Discharge Disposition: Home Discharge Instruct/Medications Diet: Regular Activity: Light activity Activity comment: Ambulate q.i.d. Follow Up/Referral: Follow up when scheduled kick counts labor precautions Medications: Resume home meds Scheduled Azithromycin (Azithromycin), 1 TAB PO DAILY Lidocaine HCl (Mouth-Throat) (Lidocaine HCl Viscous), 5 ML PO TID Scheduled PRN Docusate Sodium (Docusate Sodium), 100 MG PO HS PRN Ibuprofen Micronized (Ibuprofen), 800 MG PO Q6HR PRN Miscellaneous Medications Vit W/ Ferrous Fumara (Pnv Plus Multivi), 1 OR, (Reported) Discharge Statement: "Patient was advised to return to the ER or call 911 if any headaches, dizziness, shortness of breath, chest pain, abdominal pain, bleeding, fevers, or worsening of medical condition. Patient was counseled about treatment plan, medications, possible side effects, patientverbalized understanding. All questions were answered to the best of my ability. This discharge took greater then 30 minutes in planning, reviewing documentation, counseling the patient, and discussing with other team members." ASSESSMENT ASSESSMENT Assessment IUP @ 37.4wks and stable Visit Coding OBGYN Date of Service: Jul 31, 2025 Billing Provider: BLAYNE GERARD DO COAT PRESSER Common Visit Codes: [id number] INP/OBS CARE(MOD), 47546-[id number] INP/OBS CARE(HIGH), 73397-FWN/OBS SAME DATE (LOW) COAT PRESSER Procedure Codes: 98451-13- NON-STRESS TEST BLAYNE GERARD DO Aug 02, 2025 17:37
== END 2025-07-31 17:10 | disposition home or self-care (01) ==
LOC: LDRP 15:27
PROVIDERS: ADMIT Obstetrics & Gynecology; ATTEND Obstetrics & Gynecology
DX: O42.92 Full-term premature rupture of membranes, unspecified as to length of time between rupture and onset of labor (principal); Z3A.37 37 weeks gestation of pregnancy; Z98.890 Other specified postprocedural states
CPT/HCPCS: 59025; 81002; 84112; 94760; G0378; Q0114

== ENCOUNTER 2025-08-13 08:48 | Inpatient (IN) | payer MEDICAID ==
[~2025-08-13] VITALS: Ht 162.6 cm; Wt 106.1 kg
[2025-08-13] MEDS ORDERED: LIDOCAINE 2%HCL (LOCAL ANESTH.) INJ 20ML MDV IJ PRN (09:30)
[2025-08-13] MEDS ORDERED: NALBUPHINE HCL 10 MG/1ml INJECTION IV PRN (09:30)
[2025-08-13 09:54] LABS: Hematocrit 31.0 % (36.0-46.0); Hemoglobin 10.3 g/dL (12.2-16.2); Mean Corpuscular Hemoglobin 25.4 pg (28.0-32.0); Mean Corpuscular Volume 76.1 fL (80.0-100.0); Nucleated Red Blood Cells % 0.0 %
[2025-08-13 10:10] LABS: INR 1.0 (0.9-1.15); Partial Thromboplastin Time 28.6 SEC (24.5-34.5); Prothrombin Time 10.6 sec (9.3-11.8)
[2025-08-13 10:11] LABS: Alanine Aminotransferase 10 U/L (7-40); Albumin 3.6 g/dL (3.2-4.8); Alkaline Phosphatase 125 U/L (46-116); Anion Gap 11 (5-15); BUN/Creatinine Ratio 9.1 (10.0-20.0); Bilirubin, Total 0.5 mg/dL (0.2-1.0); Blood Urea Nitrogen 6 mg/dL (9-23); Calcium 8.5 mg/dL (8.7-10.4); Carbon Dioxide 20 mmol/L (20-31); Chloride 108 mmol/L (98-107); Glucose 102 mg/dL (74-106); Potassium 3.5 mmol/L (3.5-5.1); Sodium 139 mmol/L (136-145); Total Protein 6.7 g/dL (5.7-8.2)
[2025-08-13 10:14] LABS: Urine Protein, UAD TRACE (Negative)
[2025-08-13 10:21] LABS: Amphetamine Screen, Urine Neg (NEGATIVE); Barbiturate Scree,Urine Neg (NEGATIVE); Benzodiazephine Screen, Urine Neg (NEGATIVE); Cannabinoid Screen, Urine Neg (NEGATIVE); Cocaine Screen, Urine Neg (NEGATIVE); Opiate Scree,Urine Neg (NEGATIVE); Phencyclidine Screen, Urine Neg (NEGATIVE)
[2025-08-13] MEDS: PHISODERM TOP SOLN 240ML BTL TOP PRN (10:31)
[2025-08-13] MEDS: DERMOPLAST 60ML BOTTLE TOP PRN (10:31)
[2025-08-13] MEDS: WITCH HAZEL-GLYCERIN PAD TOP PRN (10:31)
[2025-08-13] MEDS: LACTATED RINGER'S 1,000 ML IV SCH (10:33)
--- NOTE | 2025-08-13 10:37 | DVHHP2 ---
OB CC & HPI Date Date of Admission: Aug 13, 2025 Patient Identification: : 6 Para: 3 EDC: Aug 17, 2025 EGA: 39.3 Chief Complaints: Reason for admission: induction of labor Indication for induction: maternal discomfort History of Present Complaints 34y IUP 39.3 wk Normal , complicated by BMI > 40 NO gestational diabetes GBS neg Scheduled by Dr Lees for elective labor induction Past Medical History Cardiac: No pertinent Hx Pulmonary: No pertinent Hx Central Nervous System: No pertinent Hx GI: No pertinent Hx Hemotology/Oncology: No pertinent Hx Hepatobiliary: No pertinent Hx Psychiatric: No pertinent Hx Musculoskeletal: No pertinent Hx Rheumotologic: No pertinent Hx Infectious Disease: No peritnent Hx ENT: No pertinent Hx Renal/: No pertinent Hx Endocrine: No pertinent Hx Dermatology: No pertinent Hx Past Surgical History: No pertinent Hx OB History OB History Care: Good Care Ultrasounds: Normal mid trimester US Obstetrical Complications: None Medical Complications: None Allergies: Coded Allergies: NO KNOWN ALLERGIES (Unverified , 06/29/22) Home Meds Active Scripts Lidocaine HCl (Mouth-Throat) (Lidocaine HCl Viscous) 2 % Kelli, 5 ML PO TID, #100 ML Prov:JENNY SUAZO 01/04/23 Azithromycin (Azithromycin) 500 Mg Tab, 1 TAB PO DAILY, #5 TAB Prov:JENNY SUAZO 01/04/23 Ibuprofen Micronized (Ibuprofen) 800 Mg Tab, 800 MG PO Q6HR PRN, #20 TAB Prov:RADHA SORIANO Y DO 07/01/22 Docusate Sodium (Docusate Sodium) 100 Mg Cap, 100 MG PO HS PRN, #30 CAP Prov:RADHA SORIANO DO 07/01/22 Reported Medications Vit W/ Ferrous Fumara (PNV PLUS MULTIVI) Plus Tab, 1 OR, TAB 04/25/22 Current Medications Current Medications Medications (Trade) Dose Ordered Sig/Kimberly Route PRN Reason Start Time Stop Time Status Last Admin Lactated Ringer's 1,000 ml @ 125 mls/hr Q8H IV 08/13/25 09:30 Nalbuphine HCl (Nubain) 10 mg Q4HP PRN IV MODERATE PAIN (4-6 PAIN SCALE) 08/13/25 09:30 Witch Ayanna (Tucks) 1 pad PRN PRN TOP PERINEAL AREA DISCOMFORT 08/13/25 09:30 Sodium Lauryl Sulfate (Phisoderm) 240 ml PRN PRN TOP PERINEAL AREA DISCOMFORT 08/13/25 09:30 Benzocaine (Dermoplast) 1 applic PRN PRN TOP PERINEAL AREA DISCOMFORT 08/13/25 09:30 Misoprostol (Cytotec) 50 mcg Q4HPRN PRN PO CERVICAL RIPENING 08/13/25 09:30 Lidocaine HCl (Xylocaine) 20 ml ONCE PRN IJ PERINEAL AREA DISCOMFORT 08/13/25 09:30 Family & Social History Family/Social History Blood Type: O+ Rubella: immune RPR/VDRL: Negative GBS Status: Negative HBsAG: Negative Review of Systems Constitutional: No symptom reported Ears, Nose, & Throat: No symptom reported Eyes: No symptom reported Pulmonary/Respiratory: No symptom reported Cardiovascular: No symptom reported Gastrointestinal: No symptom reported Genitourinary: No symptom reported Musculoskeletal: No symptom reported Skin: No symptom reported Psychiatric: No symptom reported Endocrine: No symptom reported Hemotologic/Lymphatic: No symptom reported OB Admission Exam Physical Exam HEENT: NCAT Heart: Rhythm Normal Lungs: Clear Abdomen: Gravid Extremities: Normal Reflexes: Normal Pelvic Exam: Pelvis adequate for vaginal delivery, clinical EFW 8lb Cervical Dilatation: 3cm Effacement: 50% Station: -2 Membranes: Intact Heart Rate: 140's Accelerations: Accelerations Present Decelerations: No Decelerations Short Term Variability: Present Picker Packer Variability: Average (6-25) Contractions on Admission: 6-10 Minutes Apart Intensity: Mild OB Plan Plan Admitting Diagnosis: Term IUP 39.3 wk, Elective Induction of labor GBS neg Categ 1 tracing Morbid obesity BMI >40 Induction Methd: Misoprostol protocol Other Plan: Admit for IOL w/ Cytotec +/- Pitocin Desires Epidural Informed consent obtained for admission, labor and delivery Visit Coding OBGYN Date of Service: Aug 13, 2025 Billing Provider: FREDY DALE DO TOUR BUS DRIVER/GUIDE Common Visit Codes: [id number] INP/OBS CARE (HIGH) FREDY DALE DO Aug 13, 2025 10:36
[2025-08-13] MEDS: NALOXONE HCL 0.4 MG/ML VIAL IV ONE (11:00)
[2025-08-13] MEDS: ROPIVACAINE EPI ONE (11:34)
[2025-08-13] MEDS: ROPIVACAINE HCL 100 ML ONE (11:40)
[2025-08-13] MEDS ORDERED: ONDANSETRON HCL 4 MG/2 ML VIAL IV PRN (12:30)
[2025-08-13] MEDS: ONDANSETRON HCL 4 MG/2 ML VIAL IV PRN (12:33)
[2025-08-13] MEDS ORDERED: TERBUTALINE SULFATE 1 MG/ML 1ML VIAL SC PRN (14:15)
[2025-08-13] MEDS: LACT. RINGERS/OXYTOCIN 20UNITS 1,000 ML IV SCH (15:02)
--- NOTE | 2025-08-13 16:12 | DVHPN2 ---
OB Labor Progress Note Date and Time Seen Date Seen: Aug 13, 2025 Time Seen: 16:10 Subjective Patient reports: No new complaints Subjective Comment Comfortable after receiving Epidural Objective Vital Signs Afeb VSS Monitoring Method Monitoring Method: External Heart Rate Heart Rate Baseline: 140 Heart Rate Variability: Moderate Presence of FHR Accelerations: Yes Presence of FHR Decelerations: No Contractions Contractions Intensity: Strong Contractions Resting Tone: Relaxed Membranes Membranes: Ruptured (AROM clear) Vaginal Exam Vaginal Exam Dilation: 6 Vaginal Exam Effacement: 70 Vaginal Exam Station: -2 Vaginal Exam Presentation: VTX Vaginal Exam Show: None Medications Medications - Pitocin: No Medication - Epidural: Yes Lab Results Lab Results Current Medications Medications (Trade) Dose Ordered Sig/Kimberly Start Time Stop Time Status Last Admin Dose Admin Lactated Ringer's 1,000 ml @ 125 mls/hr Q8H 08/13/25 09:30 08/13/25 11:32 125 MLS/HR Nalbuphine HCl (Nubain) 10 mg Q4HP PRN 08/13/25 09:30 Roman Urena (Tucks) 1 pad PRN PRN 08/13/25 09:30 08/13/25 10:31 1 PAD Sodium Lauryl Sulfate (Phisoderm) 240 ml PRN PRN 08/13/25 09:30 08/13/25 10:31 240 ML Benzocaine (Dermoplast) 1 applic PRN PRN 08/13/25 09:30 08/13/25 10:31 1 APPLIC Misoprostol (Cytotec) 50 mcg Q4HPRN PRN 08/13/25 09:30 08/13/25 10:31 50 MCG Lidocaine HCl (Xylocaine) 20 ml ONCE PRN 08/13/25 09:30 Oxytocin 500 ml @ 999 mls/hr Q31M ONCE 08/13/25 09:30 08/13/25 10:00 DC Oxytocin 500 ml @ 125 mls/hr Q4H ONCE 08/13/25 10:00 08/13/25 13:59 DC Naloxone HCl (Narcan) 0.2 mg PRN ONCE 08/13/25 11:00 08/13/25 11:29 DC Ephedrine Sulfate (ePHEDrine SULFATE) 10 mg PRN ONCE 08/13/25 11:00 08/13/25 11:29 DC Ropivacaine (Naropin) 10 mg T@N ONCE 08/13/25 11:34 08/13/25 11:46 DC Ondansetron HCl (Zofran) 4 mg Q4HPRN PRN 08/13/25 12:30 08/13/25 12:33 4 MG Ondansetron HCl (Zofran) 4 mg Q4HPRN PRN 08/13/25 12:30 08/13/25 12:30 DC Oxytocin 1,000 ml @ 6 ml/hr Q24H 08/13/25 14:15 08/13/25 15:02 6 ML/HR Terbutaline Sulfate (Brethine Inj) 0.25 mg ONCE PRN 08/13/25 14:15 Laboratory Tests Test 08/13/25 09:55 08/13/25 09:42 Range/Units Urine Color Yellow Yellow Urine Clarity Turbid H Clear Urine pH 6.0 5.0-9.0 Urine Specific Kirby 1.024 1.001-1.035 Urine Protein Trace H Negative Urine Ketones Negative Negative Urine Blood Negative Negative /uL Urine Nitrite Negative Negative Urine Bilirubin Negative Negative Urine Urobilinogen 3 H Negative mg/dL Urine Leukocyte Esterase 2+ Negative /uL Urine RBC 8 0 - 4 /hpf Urine Microscopic WBC 7 H 0-5 /HPF Urine Squamous Epithelial Cells Many <5 /hpf Urine Bacteria Mod H None Seen /hpf Urine Mucus Few None Seen Urine Glucose Normal Normal mg/dL Urine Opiates Screen Neg NEGATIVE Urine Fentanyl Screen Neg NEGATIVE Urine Barbiturates Screen Neg NEGATIVE Urine Phencyclidine Screen Neg NEGATIVE Urine Amphetamines Screen Neg NEGATIVE Urine Benzodiazepines Screen Neg NEGATIVE Urine Cocaine Screen Neg NEGATIVE Urine Cannabinoids Screen Neg NEGATIVE White Blood Count 8.0 4.4-10.8 10^3/uL Red Blood Count 4.07 4.0-5.20 10^6/uL Hemoglobin 10.3 L 12.2-16.2 g/dL Hematocrit 31.0 L 36.0-46.0 % Mean Corpuscular Volume 76.1 L 80.0-100.0 fL Mean Corpuscular Hemoglobin 25.4 L 28.0-32.0 pg Mean Corpuscular Hemoglobin Concent 33.4 32.0-36.0 g/dL Red Cell Distribution Width 15.2 H 11.8-14.3 % Platelet Count 201 140-450 10^3/uL Mean Platelet Volume 8.7 6.9-10.8 fL Neutrophils (%) (Auto) 76.1 37.0-80.0 % Lymphocytes (%) (Auto) 18.1 10.0-50.0 % Monocytes (%) (Auto) 4.9 0.0-12.0 % Eosinophils (%) (Auto) 0.5 0.0-7.0 % Basophils (%) (Auto) 0.4 0.0-2.0 % Neutrophils # (Auto) 6.1 1.6-8.6 10 ^3/uL Lymphocytes # (Auto) 1.5 0.4-5.4 10 ^3/uL Monocytes # (Auto) 0.4 0-1.3 10 ^3/uL Eosinophils # (Auto) 0 0-0.8 10 ^3/uL Basophils # (Auto) 0 0-0.2 10 ^3/uL Nucleated Red Blood Cells 0.0 % Prothrombin Time 10.6 9.3-11.8 sec Prothrombin Time INR 1.00 0.9-1.15 Activated Partial Thromboplast Time 28.6 24.5-34.5 SEC Sodium Level 139 136-145 mmol/L Potassium Level 3.5 3.5-5.1 mmol/L Chloride Level 108 H 98-107 mmol/L Carbon Dioxide Level 20 20-31 mmol/L Anion Gap 11 5-15 Blood Urea Nitrogen 6 L 9-23 mg/dL Creatinine 0.66 0.550-1.02 mg/dL Glomerular Filtration Rate Calc 118 >90 mL/min BUN/Creatinine Ratio 9.1 L 10.0-20.0 Serum Glucose 102 74-106 mg/dL Calcium Level 8.5 L 8.7-10.4 mg/dL Total Bilirubin 0.5 0.2-1.0 mg/dL Aspartate Amino Transferase (AST) 26 13-40 U/L Alanine Aminotransferase (ALT) 10 7-40 U/L Alkaline Phosphatase 125 H 46-116 U/L Total Protein 6.7 5.7-8.2 g/dL Albumin 3.6 3.2-4.8 g/dL Treponema pallidum Antibody Non-reactive Negative Hepatitis C Antibody Negative Negative Assessment Assessment Term , in labor s/p AROM Categ 1 tracing Plan Plan Anticipated continue labor mgmt Plan discussed with: Patient Visit Coding OBGYN Date of Service: Aug 13, 2025 Billing Provider: FREDY DALE DO LENS ASSISTANT Common Visit Codes: NOT BILLABLE FREDY DALE DO Aug 13, 2025 16:12
--- NOTE | 2025-08-13 18:24 | LDN2 ---
Labor and Delivery Note Date 08/13/25 Age 34 EGA 39.4 Diagnosis Term , delivered Vaginal Delivery: VTX Vacuum Assisted: No Placenta: Spontaneous Sex: Female Weight Pending Apgars 8/9 Amniotic Fluid: Clear Anesthesia Epidural Episiotomy: No Repaired with N/A EBL 75 mL Labs Laboratory Tests 12/31/24 14:40: Hepatitis B Surface Antigen Negative, HIV (1&2) Antibody Negative, Rubella Antibody Positive Blood Bank 08/13/25 09:42: Blood Type O POSITIVE Complications None Comments/Significant Med Mini uncomplicated Visit Coding OBGYN Date of Service: Aug 13, 2025 Billing Provider: FREDY DALE DO ALUMINUM SHINGLE ROOFER Common Visit Codes: PROCEDURE ONLY ALUMINUM SHINGLE ROOFER Procedure Codes: [id number] OB CARE,VAG DELIVERY FREDY DALE DO Aug 13, 2025 18:24
[2025-08-13] MEDS: IBUPROFEN 600 MG TAB PO PRN (18:48)
[2025-08-13] MEDS: LACT. RINGERS/OXYTOCIN 20UNITS 500 ML IV ONE ×2 (18:51)
[2025-08-14 00:29] VITALS: BP 105/62; PULSE 80; RESP 17; TEMP 98.7; O2SAT 98
[2025-08-14 03:30] VITALS: BP 134/61; PULSE 61; RESP 16; TEMP 98.9; O2SAT 100
[2025-08-14] MEDS: ACETAMINOPHEN 325 MG TAB PO PRN (04:38)
[2025-08-14 07:30] VITALS: BP 127/62; PULSE 56; RESP 17; TEMP 98.1; O2SAT 100
--- NOTE | 2025-08-14 07:48 | DVHPN2 ---
Progress Note Date Seen: Aug 14, 2025 Subjective PPD#1 s/p at term, uncomplicated Doing well, Denies pain, lochia mild vital signs Vital Sign Date Time Temp Pulse Resp B/P (MAP) Pulse Ox O2 Delivery O2 Flow Rate FiO2 08/14/25 03:30 98.9 61 16 134/61 (85) 100 98.9 08/13/25 21:00 Room Air Total Intake and Output 08/13/25 08/13/25 08/14/25 15:00 23:00 07:00 Output Total 500 ml 750 ml Balance -500 ml -750 ml medications Current Medications Medications Dose Ordered Sig/Kimberly Route Start Time Stop Time Status Last Admin Dose Admin Charlesshira Ayanna 1 pad PRN PRN TOP 08/13/25 09:30 08/13/25 10:31 1 PAD Sodium Lauryl Sulfate 240 ml PRN PRN TOP 08/13/25 09:30 08/13/25 10:31 240 ML Benzocaine 1 applic PRN PRN TOP 08/13/25 09:30 08/13/25 10:31 1 APPLIC Lidocaine HCl 20 ml ONCE PRN IJ 08/13/25 09:30 Cancel Terbutaline Sulfate 0.25 mg ONCE PRN SC 08/13/25 14:15 Cancel Ibuprofen 600 mg Q6HP PRN PO 08/13/25 18:30 08/14/25 00:39 600 MG Acetaminophen 650 mg Q4HP PRN PO 08/13/25 18:30 08/14/25 04:38 650 MG laboratory and microbiology Laboratory Tests 08/13/25 09:42 Test 08/13/25 09:42 Range/Units Serum Glucose 102 74-106 mg/dL Objective O: AFVSS Chest: heart and lung sounds normal. Abd soft, non-tender, fundus firm, BS, no rebound or guarding, Ext Neg Homans, Non-tender, edema Lochia - minimal Labs Reviewed Assessment/Plan PPD#1 s/p doing well Advance orders D/C planning Plan discussed with: Patient Visit Coding OBGYN Date of Service: Aug 14, 2025 Billing Provider: FREDY DALE DO ON SITE CONSTRUCTION SUPERINTENDENT Common Visit Codes: [id number] INP/OBS CARE(MOD) FREDY DALE DO Aug 14, 2025 07:48
[2025-08-14 11:10] VITALS: BP 114/64; PULSE 68; RESP 16; TEMP 98.3; O2SAT 100
[2025-08-14 15:30] VITALS: BP 107/58; PULSE 63; RESP 17; TEMP 98; O2SAT 99
--- NOTE | 2025-08-14 19:23 | DVHDS2 ---
Physician Discharge Progress N Final Diagnosis: Term , delivered Operations or Procedures: Operations or Procedures Induction of labor with normal spontaneous vaginal delivery Commentary: Commentary Normal labor and delivery uncomplicated course Condition on Discharge: Stable Disposition: Home Discharge Instructions: Diet: Regular Activity: No Restrictions, As Tolerated Follow Up/Referral: 6 wk Medications: N/A Follow Up Care: Discharge Statement: "Patient was advised to return to the ER or call 911 if any headaches, dizziness, shortness of breath, chest pain, abdominal pain, bleeding, fevers, or worsening of medical condition. Patient was counseled about treatment plan, medications, possible side effects, patientverbalized understanding. All questions were answered to the best of my ability. This discharge took greater then 30 minutes in planning, reviewing documentation, counseling the patient, and discussing with other team members." Visit Coding OBGYN Date of Service: Aug 14, 2025 Billing Provider: FREDY DALE DO AUTOMOTIVE PARTS MANAGER Common Visit Codes: [id number] DISCH DAY <30MIN FREDY DALE DO Aug 14, 2025 19:23
[2025-08-14 19:47] VITALS: BP 120/70; PULSE 80; RESP 18; TEMP 98.5; O2SAT 98
== END 2025-08-14 19:47 | disposition home or self-care (01) | DRG 560 ==
LOC: LDRP 08:48
PROVIDERS: ADMIT Obstetrics & Gynecology; ATTEND Obstetrics & Gynecology
PROC: 10E0XZZ Delivery of Products of Conception, External Approach (ICD-10-PCS; principal; 2025-08-13)
PROC: 3E0DXGC Introduction of Other Therapeutic Substance into Mouth and Pharynx, External Approach (ICD-10-PCS; 2025-08-13)
PROC: 3E0S3BZ Introduction of Anesthetic Agent into Epidural Space, Percutaneous Approach (ICD-10-PCS; 2025-08-13)
PROC: 00HU33Z Insertion of Infusion Device into Spinal Canal, Percutaneous Approach (ICD-10-PCS; 2025-08-13)
DX: O99.214 Obesity complicating childbirth (principal); Z37.0 Single live birth; E66.01 Morbid (severe) obesity due to excess calories; Z3A.39 39 weeks gestation of pregnancy
CPT/HCPCS: 36415; 59409; 62282; 80053; 80307; 81001; 81002; 85025; 85610; 85730; 86780; 86803; 86850; 86900; 86901; 94760; 94762; 96360; 96361; 96365; 96366; 96374; G0378; J2405; J2590